=== PATIENT | female | born 1950 | race Caucasian/White ===

== ENCOUNTER 2022-01-15 15:31 | Emergency (ER) | payer MEDICARE ==
[2022-01-15] MEDS ORDERED: Morphine 4 MG/ML VIAL ONE (15:57)
[2022-01-15] MEDS ORDERED: Ondansetron PF 4 MG/2 ML Vial ONE ×2 (15:57→18:21)
[2022-01-15 16:18] LABS: #Basophils 0.1 10x3/uL (0.0-0.2); #Eosinphils 0.4 10x3/uL (0.0-0.5); #Monocytes 0.9 10x3/uL (0.0-1.1); #Neutrophils 7.8 10x3/uL (1.5-8.4); %Basophils 0.5 % (0.0-2.0); %Eosinophils 4.1 % (0.0-6.0); %Lymphocytes 11.4 % (18.0-47.0); %Monocytes 8.8 % (0.0-10.0); %Neutrophils 74.8 % (40.0-75.0); Hemoglobin 13.1 g/dL (12.0-15.5); Mean Corpuscular HGB CONC 32.5 g/dL (32.0-36.0); Mean Corpuscular Hemoglobin 29.5 pg (27.0-33.0); Mean Corpuscular Volume 90.8 fl (81.6-98.3); Mean Platelet Volume 9.1 fl (7.4-10.4); Platelet Count 316 10x3/uL (150-450); RBC Distribution Width 12.9 % (11.5-14.5); Red Blood Cell (RBC) Count 4.44 10x6/uL (3.90-5.03); White Blood Cell (WBC) Count 10.5 10x3/uL (3.5-10.5)
[2022-01-15 16:41] LABS: ALT (SGPT) 24 U/L (8-55); AST (SGOT) 20 U/L (5-34); Albumin 4.1 g/dL (3.4-4.8); Alkaline Phosphatase 135 U/L (40-110); Anion Gap 16 mmol/L (10-20); BUN (Urea Nitrogen) 15 mg/dL (9.8-20.1); Bilirubin, Total 0.7 mg/dL (0.2-1.2); Calc. Creatinine Clearance 0 mL/min (70-130); Calcium 9.1 mg/dL (7.8-10.44); Carbon Dioxide 23 mmol/L (23-31); Chloride 106 mmol/L (98-107); Globulin 2.4 g/dL (2.4-3.5); Glucose 105 mg/dL (80-115); Lipase 8 U/L (8-78); Magnesium 2.1 mg/dL (1.6-2.6); Protein, Total 6.5 g/dL (5.8-8.1); Sodium 142 mmol/L (136-145)
[2022-01-15] MEDS ORDERED: Potassium Chloride 20 MEQ/100 ML PREMIX BAG ONE (17:01)
[2022-01-15 17:05] LABS: Bilirubin 1+ (Negative); Blood, Urine Negative (Negative); Clarity Clear (Clear); Glucose, Urine (Dipstick) Normal (Negative); Ketone, Urine 50 mg/dL (Negative); Leukocyte 25 (Negative); Nitrite Positive (Negative); Protein, Urine (Dipstick) 30 mg/dl (Neg-Trace)
[2022-01-15 17:23] LABS: Bacteria/HPF Rare-Few HPF (None Seen); RBC/HPF 0-3 HPF (0-3); WBC/HPF 0-3 HPF (0-3)
[2022-01-15 17:24] LABS: Calcium Oxalate Crystals 1+ HPF (None Seen); Mucous/LPF Rare LPF (<2+)
[2022-01-15] MEDS ORDERED: Potassium Chloride 20 MEQ TAB ONE (18:18)
== END 2022-01-15 19:56 | disposition home or self-care (01) ==
LOC: CSHERS 15:31
DX: N39.0 Urinary tract infection, site not specified (principal); K62.89 Other specified diseases of anus and rectum; E87.6 Hypokalemia; I10 Essential (primary) hypertension; K21.9 Gastro-esophageal reflux disease without esophagitis
CPT/HCPCS: 74177; 80053; 81003; 81015; 83690; 83735; 85025; 93005; 96374; 96375; 96376; J2270; J2405; J3480

== ENCOUNTER 2022-02-04 12:51 | Emergency (ER) | payer MEDICARE ==
[~2022-02-04 12:51] MED LIST: Iopamidol 300 61% 100 ML VIAL FS ONE
[2022-02-04 13:46] LABS: #Eosinphils 0.3 10x3/uL (0.0-0.5); #Monocytes 0.7 10x3/uL (0.0-1.1); #Neutrophils 6.2 10x3/uL (1.5-8.4); %Basophils 0.4 % (0.0-2.0); %Eosinophils 3.2 % (0.0-6.0); %Lymphocytes 13.9 % (18.0-47.0); %Monocytes 8.4 % (0.0-10.0); %Neutrophils 73.6 % (40.0-75.0); Mean Corpuscular HGB CONC 32.9 g/dL (32.0-36.0); Mean Corpuscular Hemoglobin 29.7 pg (27.0-33.0); Mean Corpuscular Volume 90.3 fl (81.6-98.3); Mean Platelet Volume 9.5 fl (7.4-10.4); Platelet Count 223 10x3/uL (150-450); RBC Distribution Width 13.1 % (11.5-14.5); Red Blood Cell (RBC) Count 4.04 10x6/uL (3.90-5.03); White Blood Cell (WBC) Count 8.4 10x3/uL (3.5-10.5)
[2022-02-04 13:58] LABS: Bilirubin Neg (Negative); Blood, Urine Negative (Negative); Clarity Clear (Clear); Glucose, Urine (Dipstick) Normal (Negative); Ketone, Urine 15 mg/dL (Negative); Leukocyte Negative (Negative); Nitrite Negative (Negative); Protein, Urine (Dipstick) Negative (Neg-Trace); Specific Gravity, Urine 1.015 (1.002-1.036); Urobilinogen Normal mg/dL (Less than 2)
[2022-02-04] MEDS ORDERED: Ondansetron PF 4 MG/2 ML Vial ONE (14:02)
[2022-02-04] MEDS ORDERED: Morphine 4 MG/ML VIAL ONE ×2 (14:02→15:47)
[2022-02-04 14:20] LABS: ALT (SGPT) 30 U/L (8-55); AST (SGOT) 27 U/L (5-34); Albumin 3.9 g/dL (3.4-4.8); Alkaline Phosphatase 127 U/L (40-110); Anion Gap 11 mmol/L (10-20); BUN (Urea Nitrogen) 21 mg/dL (9.8-20.1); Bilirubin, Total 0.6 mg/dL (0.2-1.2); Calc. Creatinine Clearance 0 mL/min (70-130); Calcium 8.8 mg/dL (7.8-10.44); Carbon Dioxide 25 mmol/L (23-31); Chloride 104 mmol/L (98-107); Globulin 2.5 g/dL (2.4-3.5); Glucose 96 mg/dL (80-115); Lipase 9 U/L (8-78); Potassium 3.6 mmol/L (3.5-5.1); Protein, Total 6.4 g/dL (5.8-8.1); Sodium 136 mmol/L (136-145)
== END 2022-02-04 16:34 | disposition home or self-care (01) ==
LOC: CSHERS 12:51
DX: K52.9 Noninfective gastroenteritis and colitis, unspecified (principal); K21.9 Gastro-esophageal reflux disease without esophagitis; I10 Essential (primary) hypertension; J45.909 Unspecified asthma, uncomplicated
CPT/HCPCS: 74177; 80053; 81003; 83690; 85025; 96374; 96375; 96376; J2270; J2405; Q9967

== ENCOUNTER 2022-07-13 08:50 | Inpatient (IN) | payer MEDICARE ==
[2022-07-13] MEDS ORDERED: Ondansetron PF 4 MG/2 ML Vial ONE (09:11)
[2022-07-13] MEDS ORDERED: Morphine 4 MG/ML VIAL ONE (09:11)
[2022-07-13] MEDS ORDERED: Iopamidol 300 61% 100 ML VIAL FS ONE (09:30)
[2022-07-13 09:36] LABS: #Eosinphils 0.1 10x3/uL (0.0-0.5); #Monocytes 1.2 10x3/uL (0.0-1.1); #Neutrophils 10.9 10x3/uL (1.5-8.4); %Basophils 0.3 % (0.0-2.0); %Eosinophils 0.4 % (0.0-6.0); %Lymphocytes 11.3 % (18.0-47.0); %Monocytes 8.4 % (0.0-10.0); %Neutrophils 78.9 % (40.0-75.0); Hemoglobin 14.6 g/dL (12.0-15.5); Mean Corpuscular HGB CONC 33.5 g/dL (32.0-36.0); Mean Corpuscular Hemoglobin 32.3 pg (27.0-33.0); Mean Corpuscular Volume 96.5 fl (81.6-98.3); Mean Platelet Volume 8.9 fl (7.4-10.4); Platelet Count 244 10x3/uL (150-450); RBC Distribution Width 13.3 % (11.5-14.5); Red Blood Cell (RBC) Count 4.52 10x6/uL (3.90-5.03); White Blood Cell (WBC) Count 13.8 10x3/uL (3.5-10.5)
[2022-07-13 09:55] LABS: ALT (SGPT) 292 U/L (8-55); AST (SGOT) 66 U/L (5-34); Alkaline Phosphatase 184 U/L (40-110); Anion Gap 14 mmol/L (10-20); BUN (Urea Nitrogen) 37 mg/dL (9.8-20.1); Bilirubin, Total 1.3 mg/dL (0.2-1.2); Calc. Creatinine Clearance 0 mL/min (70-130); Carbon Dioxide 25 mmol/L (23-31); Chloride 104 mmol/L (98-107); Estimated GFR 68; Globulin 2.9 g/dL (2.4-3.5); Glucose 126 mg/dL (83-110); Lipase 8 U/L (8-78); Potassium 4.1 mmol/L (3.5-5.1); Protein, Total 6.9 g/dL (5.8-8.1); Sodium 139 mmol/L (136-145)
[2022-07-13 11:08] LABS: Bilirubin Neg (Negative); Blood, Urine Negative (Negative); Clarity Clear (Clear); Glucose, Urine (Dipstick) Normal (Negative); Ketone, Urine Negative (Negative); Leukocyte Negative (Negative); Nitrite Negative (Negative); Protein, Urine (Dipstick) 15 mg/dl (Neg-Trace); Specific Gravity, Urine 1.015 (1.005-1.030); Urobilinogen Normal mg/dL (Less than 2)
[2022-07-13 12:24] VITALS: BMI 26.2
[2022-07-13] MEDS ORDERED: Ondansetron ODT 4 MG TAB PO PRN (12:47)
[2022-07-13] MEDS: metroNIDAZOLE 500 MG in Premix Bag 1 BAG IVPB SCH ×2 (13:46→20:47)
[2022-07-13] MEDS: Sodium Chloride 0.9% 1,000 ML IV SCH ×2 (13:46→22:53)
[2022-07-13] MEDS: Morphine 2 MG/ML VIAL SLOW IVP PRN (17:10)
[2022-07-13] MEDS: Ketorolac Tromethamine 30 MG/ML VIAL IVP PRN (20:45)
[2022-07-13] MEDS: Famotidine 20 MG TAB PO SCH (20:47)
[2022-07-13 23:21] LABS: HBCM Index 0.19 S/CO (0-0.79); HBSAg Index 0.27 S/CO (0-0.99); Hep A IgM AB Non-Reactive (NonReactive); Hep A IgM S/CO 0.19 S/CO (0-0.79); Hep B Surf Ag Non-Reactive S/CO (NonReactive); Hep C IgG Ab Non-Reactive (NonReactive); Hepatitis B Core IgM Abs Non-Reactive (NonReactive)
[2022-07-14] MEDS: Morphine 2 MG/ML VIAL SLOW IVP PRN ×3 (03:45→18:05)
[2022-07-14 04:46] LABS: #Eosinphils 0.2 10x3/uL (0.0-0.5); %Basophils 0.2 % (0.0-2.0); %Eosinophils 1.7 % (0.0-6.0); %Lymphocytes 20.5 % (18.0-47.0); %Monocytes 9.3 % (0.0-10.0); %Neutrophils 67.7 % (40.0-75.0); Hemoglobin 11.8 g/dL (12.0-15.5); Mean Platelet Volume 9.2 fl (7.4-10.4); Platelet Count 182 10x3/uL (150-450); RBC Distribution Width 13.2 % (11.5-14.5); Red Blood Cell (RBC) Count 3.69 10x6/uL (3.90-5.03); White Blood Cell (WBC) Count 10.3 10x3/uL (3.5-10.5)
[2022-07-14 05:09] LABS: ALT (SGPT) 198 U/L (8-55); AST (SGOT) 55 U/L (5-34); Albumin 3.3 g/dL (3.4-4.8); Alkaline Phosphatase 147 U/L (40-110); Anion Gap 11 mmol/L (10-20); BUN (Urea Nitrogen) 31 mg/dL (9.8-20.1); Bilirubin, Total 1.4 mg/dL (0.2-1.2); Calc. Creatinine Clearance 76 mL/min (70-130); Calcium 8.1 mg/dL (7.8-10.44); Carbon Dioxide 23 mmol/L (23-31); Chloride 108 mmol/L (98-107); Estimated GFR 82; Globulin 2.3 g/dL (2.4-3.5); Glucose 86 mg/dL (83-110); Protein, Total 5.6 g/dL (5.8-8.1); Sodium 138 mmol/L (136-145)
[2022-07-14] MEDS: metroNIDAZOLE 500 MG in Premix Bag 1 BAG IVPB SCH ×3 (06:04→21:18)
[2022-07-14] MEDS: Lisinopril 20 MG TAB PO SCH ×2 (08:10→21:19)
[2022-07-14] MEDS: Gabapentin 100 MG CAP PO SCH ×2 (08:10→21:18)
[2022-07-14] MEDS: Famotidine 20 MG TAB PO SCH ×2 (08:10→21:18)
[2022-07-14] MEDS: Sodium Chloride 0.9% 1,000 ML IV SCH ×2 (08:11→15:43)
[2022-07-14] MEDS: Ketorolac Tromethamine 30 MG/ML VIAL IVP PRN (11:24)
[2022-07-14 21:12] LABS: Campy jejuni + coli by PCR Negative (Negative); STEC Shiga Toxin 1+2 Negative (Negative); Salmonella spp. by PCR Negative (Negative); Shigella spp + EIEC by PCR Negative (Negative)
[2022-07-15] MEDS: Morphine 2 MG/ML VIAL SLOW IVP PRN ×3 (01:18→12:54)
[2022-07-15] MEDS: Sodium Chloride 0.9% 1,000 ML IV SCH ×3 (04:54→20:59)
[2022-07-15] MEDS: metroNIDAZOLE 500 MG in Premix Bag 1 BAG IVPB SCH ×3 (06:21→21:10)
[2022-07-15] MEDS: Lisinopril 20 MG TAB PO SCH ×2 (08:27→20:57)
[2022-07-15] MEDS: Famotidine 20 MG TAB PO SCH ×2 (08:28→20:57)
[2022-07-15] MEDS: Gabapentin 100 MG CAP PO SCH ×2 (08:28→20:58)
[2022-07-15 10:30] LABS: ALT (SGPT) 137 U/L (8-55); AST (SGOT) 33 U/L (5-34); Albumin 3.2 g/dL (3.4-4.8); Alkaline Phosphatase 145 U/L (40-110); Anion Gap 10 mmol/L (10-20); BUN (Urea Nitrogen) 14 mg/dL (9.8-20.1); Bilirubin, Total 0.7 mg/dL (0.2-1.2); Calc. Creatinine Clearance 90 mL/min (70-130); Carbon Dioxide 23 mmol/L (23-31); Chloride 112 mmol/L (98-107); Estimated GFR 94; Globulin 2.2 g/dL (2.4-3.5); Glucose 97 mg/dL (83-110); Potassium 3.5 mmol/L (3.5-5.1); Protein, Total 5.4 g/dL (5.8-8.1); Sodium 141 mmol/L (136-145)
[2022-07-15] MEDS ORDERED: traMADol HCl 50 MG TAB PO PRN (13:02)
[2022-07-15] MEDS ORDERED: Mometasone/Formoterol 200/5 60 PUFF INH SCH (18:30)
[2022-07-15] MEDS ORDERED: Ventolin HFA Inhaler 60 PUFF INHALER INH SCH (19:00)
[2022-07-15] MEDS ORDERED: Ketorolac Tromethamine 30 MG/ML VIAL IVP PRN (19:52)
[2022-07-15] MEDS ORDERED: Morphine 2 MG/ML VIAL SLOW IVP PRN (19:52)
[2022-07-15] MEDS: Ondansetron ODT 4 MG TAB PO PRN (20:56)
[2022-07-15] MEDS: rOPINIRole HCl 1 MG TAB PO SCH (20:57)
[2022-07-15] MEDS ORDERED: Gabapentin 100 MG CAP PO SCH ×2 (21:00)
[2022-07-15] MEDS ORDERED: rOPINIRole HCl 1 MG TAB PO SCH (21:00)
[2022-07-15] MEDS ORDERED: Fluticasone Propionate Nasal Spray 16 gm Bottle NASAL SCH (21:00)
[2022-07-15] MEDS: Fluticasone Propionate Nasal Spray 16 gm Bottle NASAL SCH (21:08)
[2022-07-16] MEDS: Ventolin HFA Inhaler 60 PUFF INHALER INH SCH ×4 (01:00→19:15)
[2022-07-16] MEDS: Sodium Chloride 0.9% 1,000 ML IV SCH ×2 (04:15→17:02)
[2022-07-16] MEDS: metroNIDAZOLE 500 MG in Premix Bag 1 BAG IVPB SCH (06:05)
[2022-07-16] MEDS: Mometasone/Formoterol 200/5 60 PUFF INH SCH ×2 (07:10→19:15)
[2022-07-16] MEDS: Fluticasone Propionate Nasal Spray 16 gm Bottle NASAL SCH ×2 (08:41→21:30)
[2022-07-16] MEDS: Ondansetron ODT 4 MG TAB PO PRN (08:43)
[2022-07-16] MEDS ORDERED: Montelukast Sodium 10 mg Tablet PO SCH (09:00)
[2022-07-16] MEDS ORDERED: NIFEdipine XL 30 MG TAB PO SCH ×2 (09:00)
[2022-07-16] MEDS: Famotidine 20 MG TAB PO SCH ×2 (09:16→21:30)
[2022-07-16] MEDS: Montelukast Sodium 10 mg Tablet PO SCH (09:16)
[2022-07-16] MEDS: Gabapentin 100 MG CAP PO SCH ×2 (09:17→21:30)
[2022-07-16] MEDS: Lisinopril 20 MG TAB PO SCH ×2 (09:17→21:30)
[2022-07-16] MEDS: traMADol HCl 50 MG TAB PO PRN ×2 (17:01→21:34)
[2022-07-16] MEDS: rOPINIRole HCl 1 MG TAB PO SCH (21:29)
[2022-07-17] MEDS: Ventolin HFA Inhaler 60 PUFF INHALER INH SCH ×3 (01:00→14:55)
[2022-07-17] MEDS: Sodium Chloride 0.9% 1,000 ML IV SCH (02:12)
[2022-07-17 07:50] VITALS: TEMP 97.6
[2022-07-17] MEDS: Famotidine 20 MG TAB PO SCH (08:50)
[2022-07-17] MEDS: Lisinopril 20 MG TAB PO SCH (08:51)
[2022-07-17] MEDS: Montelukast Sodium 10 mg Tablet PO SCH (08:51)
[2022-07-17] MEDS: Gabapentin 100 MG CAP PO SCH (08:52)
[2022-07-17 08:53] VITALS: BP 164/72
[2022-07-17] MEDS: Fluticasone Propionate Nasal Spray 16 gm Bottle NASAL SCH (08:54)
[2022-07-17] MEDS: Mometasone/Formoterol 200/5 60 PUFF INH SCH (08:58)
[2022-07-17] MEDS ORDERED: NIFEdipine XL 60 MG TAB PO SCH (09:00)
== END 2022-07-17 15:20 | disposition home or self-care (01) | DRG 177 ==
LOC: CSHERS 08:50 → CSHTELE 11:58 → INTOOBSV 11:58 → UNDODISOB 07-15 14:30 → OBSVTOIN 07-16 08:12
PROVIDERS: ADMIT Hospitalist; ATTEND Internal Medicine
PROC: 8E0ZXY6 Isolation (ICD-10-PCS; principal; 2022-07-16)
DX: U07.1 COVID-19 (principal); K55.031 Focal (segmental) acute (reversible) ischemia of large intestine; K92.1 Melena; I10 Essential (primary) hypertension; G89.29 Other chronic pain; M54.9 Dorsalgia, unspecified; F32.A Depression, unspecified; K21.9 Gastro-esophageal reflux disease without esophagitis; K58.9 Irritable bowel syndrome, unspecified; K57.30 Diverticulosis of large intestine without perforation or abscess without bleeding; R74.01 Elevation of levels of liver transaminase levels; J45.909 Unspecified asthma, uncomplicated; M41.9 Scoliosis, unspecified; Z79.899 Other long term (current) drug therapy; Z82.49 Family history of ischemic heart disease and other diseases of the circulatory system; Z83.6 Family history of other diseases of the respiratory system; Z90.49 Acquired absence of other specified parts of digestive tract; Z90.89 Acquired absence of other organs; Z88.1 Allergy status to other antibiotic agents; Z88.2 Allergy status to sulfonamides; Z79.51 Long term (current) use of inhaled steroids; Z90.710 Acquired absence of both cervix and uterus
CPT/HCPCS: 36415; 36416; 74177; 80053; 80074; 81003; 83690; 85025; 87324; 87449; 87493; 87505; 93005; 94664; 96361; 96374; 96375; 96376; G0378; J1885; J2270; J2405; J7050; Q0162; Q9967; U0003; U0005

== ENCOUNTER 2024-08-10 09:35 | Emergency (ER) | payer MEDICARE, OTHER ==
[~2024-08-10 09:35] MED LIST changes: -Iopamidol 300 61% 100 ML VIAL FS ONE; +Iopamidol 370 76% 100 ML VIAL ONE
[2024-08-10] MEDS ORDERED: Ondansetron PF 4 MG/2 ML Vial ONE (10:07)
[2024-08-10 10:42] LABS: #Basophils 0.03 10x3/uL (0.0-0.2); #Eosinophils 0.34 10x3/uL (0.0-0.5); #Monocytes 0.87 10x3/uL (0.0-1.1); #Neutrophils 11.38 10x3/uL (1.5-8.4); %Basophils 0.2 % (0.0-2.0); %Eosinophils 2.5 % (0.0-6.0); %Lymphocytes 5.6 % (18.0-47.0); %Monocytes 6.5 % (0.0-10.0); %Neutrophils 84.6 % (40.0-75.0); Hematocrit 45.6 % (34.9-44.5); Hemoglobin 14.5 g/dL (12.0-15.5); Mean Corpuscular HGB CONC 31.8 g/dL (32.0-36.0); Mean Corpuscular Hemoglobin 30.8 pg (27.0-33.0); Mean Corpuscular Volume 96.8 fL (81.6-98.3); Platelet Count 236 10x3/uL (150-450); RBC Distribution Width 12.9 % (11.5-14.5); Red Blood Cell (RBC) Count 4.71 10x6/uL (3.90-5.03); White Blood Cell (WBC) Count 13.5 10x3/uL (3.5-10.5)
[2024-08-10 10:57] LABS: ALT (SGPT) 37 U/L (8-55); AST (SGOT) 23 U/L (5-34); Alkaline Phosphatase 95 U/L (40-110); Anion Gap 14 mmol/L (10-20); BUN (Urea Nitrogen) 31 mg/dL (9.8-20.1); Calc. Creatinine Clearance 0 mL/min (70-130); Calcium 9.5 mg/dL (7.8-10.44); Carbon Dioxide 28 mmol/L (23-31); Chloride 106 mmol/L (98-107); Estimated GFR 70; Globulin 2.9 g/dL (2.4-3.5); Glucose 104 mg/dL (83-110); Lipase 12 U/L (8-78); Potassium 3.9 mmol/L (3.5-5.1); Protein, Total 6.9 g/dL (5.8-8.1); Sodium 144 mmol/L (136-145)
[2024-08-10 12:12] LABS: Bilirubin Neg (Negative); Blood, Urine Negative (Negative); Clarity Clear (Clear); Glucose, Urine (Dipstick) Normal (Negative); Ketone, Urine Negative (Negative); Leukocyte 25 (Negative); Nitrite Negative (Negative); Protein, Urine (Dipstick) Negative (Neg-Trace); Urobilinogen Normal mg/dL (Less than 2)
[2024-08-10 12:19] LABS: Bacteria/HPF Rare-Few HPF (None Seen); CAUTI Indications for Culture Pelvic or flank pain; RBC/HPF 0-3 HPF (0-3); Squamous Epithelial Greater than 50 HPF (0-3)
[2024-08-10 12:20] LABS: Urine Culture Reflex No No
[2024-08-10] MEDS ORDERED: Ondansetron ODT 4 MG TAB ONE (12:28)
== END 2024-08-10 12:24 | disposition home or self-care (01) ==
LOC: CSHERS 09:35
DX: R11.2 Nausea with vomiting, unspecified (principal); R19.7 Diarrhea, unspecified; I10 Essential (primary) hypertension
CPT/HCPCS: 74177; 80053; 81001; 83690; 85025; J2405; Q0162; Q9967; 96374